=== PATIENT | male | born 1960 | race Caucasian/White ===

== ENCOUNTER 2019-07-28 10:38 | Emergency (ER) | payer OTHER, MEDICAID ==
[~2019-07-28] VITALS: Ht 177.8 cm; Wt 81.6 kg
[2019-07-28 10:38] VITALS: BP_SYST 119
[2019-07-28 11:50] LABS: BILIRUBIN,URINE NEGATIVE (NEGATIVE); BLOOD, URINE NEGATIVE (NEGATIVE); CLARITY/URINE CLEAR (CLEAR); COLOR,URINE YELLOW (YELLOW); GLUCOSE,URINE NEGATIVE (NEGATIVE); KETONES,URINE NEGATIVE (NEGATIVE); LEUKOCYTE ESTERASE ,URINE NEGATIVE (NEGATIVE); NITRITE, URINE NEGATIVE (NEGATIVE); PROTEIN URINE NEGATIVE (NEGATIVE); UROBILINOGEN,URINE 0.2 (0.2-1.0)
[2019-07-28 11:50] LABS: BASOPHILS % (AUTO) 0.6 % (0.0-2.0); EOSINOPHILS # (AUTO) 0.1 K/uL (0.0-0.4); EOSINOPHILS % (AUTO) 0.9 % (0.0-4.0); HEMATOCRIT 41.2 % (36-54); HEMOGLOBIN 13.2 g/dL (14.0-18.0); LYMPHOCYTES # (AUTO) 1.3 K/uL (1.0-5.5); LYMPHOCYTES % (AUTO) 20.4 % (20.5-51.5); MEAN CORPUSCULAR HEMOGLOBIN 29 pg (27-31); MEAN CORPUSCULAR HGB CONC 32 % (32-36); MEAN CORPUSCULAR VOLUME 89 fL (79.0-98.0); MONOCYTES # (AUTO) 0.6 K/uL (0.0-1.0); MONOCYTES % (AUTO) 8.8 % (1.7-9.3); NEUTROPHILS # (AUTO) 4.3 K/uL (1.8-7.7); NEUTROPHILS % (AUTO) 69.3 % (40.0-70.0); PLATELET COUNT (AUTO) 222 K/uL (130-430); RED BLOOD CELL COUNT(AUTO) 4.61 MIL/uL (4.2-6.2); RED CELL DISTRIBUTION WIDTH 13.8 % (9.0-15.0); WHITE BLOOD COUNT (AUTO) 6.3 K/uL (4.8-10.8)
[2019-07-28 12:03] LABS: ANION GAP 4 (5-15); CHLORIDE 103 mmol/L (98-107); CREATININE 0.92 mg/dL (0.55-1.30); GLUCOSE 101 mg/dL (70-99); POTASSIUM 4.8 mmol/L (3.5-5.1); SODIUM SERUM 136 mmol/L (136-145); UREA NITROGEN, BLOOD 16 mg/dL (8-21)
[2019-07-28 12:08] LABS: ALANINE AMINOTRANSFERASE 40 U/L (12-78); ALBUMIN 3.4 g/dL (3.4-4.8); ASPARTATE AMINOTRANSFERASE 26 U/L (10-37); CHOLESTEROL 177 mg/dL (<200); HDL CHOLESTEROL 58 mg/dL (>45); LDL CHOLESTEROL 98 mg/dL (<100); TOTAL BILIRUBIN 0.4 mg/dL (0.0-1.0); TRIGLYCERIDES 76 mg/dL (30-150)
[2019-07-28 12:15] LABS: BARBITURATE, URINE NEGATIVE (NEG <=200); BENZODIAZEPINE, URINE NEGATIVE (NEG <=150); CANNABINOID, URINE NEGATIVE (NEG <=50); COCAINE, URINE NEGATIVE (NEG <=150); METHAMPHETAMINES SCREEN,URINE NEGATIVE (NEG <=500); OPIATE, URINE NEGATIVE (NEG <=100); PHENCYCLIDINE SCREEN,URINE NEGATIVE (NEG <=25); UR TRICYCLIC ANTIDEPRESSANTS POSITIVE (NEG <=300); URINE AMPHETAMINE NEGATIVE (NEG <=500); URINE METHADONE NEGATIVE (NEG <=200); URINE OXYCODONE SCREEN NEGATIVE (NEG <=100); URINE PROPOXYPHENE SCREEN NEGATIVE (NEG <=300)
[2019-07-28 12:18] LABS: GFR AFRICAN AMERICAN 108 mL/min (>90)
[2019-07-28 12:21] LABS: ACETAMINOPHEN < 1 ug/mL (1-30); ALCOHOL, BLOOD < 3 mg/dL (<10)
[2019-07-28 12:42] VITALS: BP_SYST 114
== END 2019-07-28 12:42 ==
LOC: SED 10:38
DX: R25.1 Tremor, unspecified (principal); R53.1 Weakness; I10 Essential (primary) hypertension
CPT/HCPCS: 36415; 80053; 80061; 80307; 81003; 83036; 85025; 87081; 99285; G0480; G0481; G0482

== ENCOUNTER 2019-10-29 15:38 | Emergency (ER) | payer OTHER, MEDICAID ==
[~2019-10-29] VITALS: Ht 180.3 cm; Wt 113.4 kg
--- NOTE | 2019-10-29 15:40 | NUR ---
ER at bedside examining patient.
[2019-10-29 15:44] VITALS: BP_SYST 110
--- NOTE | 2019-10-29 15:44 | NUR ---
Patient to ER bed 04 to gown for evaluation. Side rails up. Report given to anthony Smith
--- NOTE | 2019-10-29 15:55 | NUR ---
RN ASSESSING PT. PT IS ALERT AND ORIENTED. PT STATED HE FELL A COUPLE OF TIMES TODAY. PT IS FROM A BOARD AND CARE. NO OBVIOUS INJURIES AND PT DENIES HITTING HIS HEAD.
[2019-10-29] MEDS ORDERED: NACL 0.9% 1,000 ML IV ONE (16:30)
[2019-10-29 16:44] LABS: BASOPHILS # (AUTO) 0.1 K/uL (0.0-0.2); BASOPHILS % (AUTO) 0.5 % (0.0-2.0); EOSINOPHILS # (AUTO) 0.1 K/uL (0.0-0.4); EOSINOPHILS % (AUTO) 0.9 % (0.0-4.0); HEMATOCRIT 41.4 % (36-54); HEMOGLOBIN 13.1 g/dL (14.0-18.0); LYMPHOCYTES # (AUTO) 1.7 K/uL (1.0-5.5); LYMPHOCYTES % (AUTO) 14.5 % (20.5-51.5); MEAN CORPUSCULAR HEMOGLOBIN 28 pg (27-31); MEAN CORPUSCULAR HGB CONC 32 % (32-36); MEAN CORPUSCULAR VOLUME 90 fL (79.0-98.0); MONOCYTES # (AUTO) 1.6 K/uL (0.0-1.0); MONOCYTES % (AUTO) 13.5 % (1.7-9.3); NEUTROPHILS # (AUTO) 8.4 K/uL (1.8-7.7); NEUTROPHILS % (AUTO) 70.6 % (40.0-70.0); RED BLOOD CELL COUNT(AUTO) 4.62 MIL/uL (4.2-6.2); RED CELL DISTRIBUTION WIDTH 14.2 % (9.0-15.0); WHITE BLOOD COUNT (AUTO) 11.9 K/uL (4.8-10.8)
[2019-10-29 16:54] LABS: ANION GAP 6 (5-15); CALCIUM 8.3 mg/dL (8.4-11.0); CHLORIDE 106 mmol/L (98-107); GLUCOSE 110 mg/dL (70-99); POTASSIUM 4.3 mmol/L (3.5-5.1); SODIUM SERUM 139 mmol/L (136-145); UREA NITROGEN, BLOOD 23 mg/dL (8-21)
[2019-10-29 16:55] LABS: GFR AFRICAN AMERICAN 98 mL/min (>90)
[2019-10-29 16:56] LABS: PLATELET COUNT (AUTO) 228 K/uL (130-430); PROTHROMBIN TIME 9.9 SECS (9.5-12.5)
[2019-10-29 16:59] LABS: ALANINE AMINOTRANSFERASE 26 U/L (12-78); ALBUMIN 3.1 g/dL (3.4-4.8); ASPARTATE AMINOTRANSFERASE 25 U/L (10-37); TOTAL BILIRUBIN 0.4 mg/dL (0.0-1.0)
[2019-10-29 17:02] LABS: ALCOHOL, BLOOD < 3 mg/dL (<10)
--- NOTE | 2019-10-29 17:05 | NUR ---
PT JUST BACK FROM CT.
--- NOTE | 2019-10-29 19:14 | NUR ---
RECEIEVED ADMIT ORDERS FROM DR. SO.
[2019-10-29 19:16] LABS: BILIRUBIN,URINE NEGATIVE (NEGATIVE); BLOOD, URINE NEGATIVE (NEGATIVE); CLARITY/URINE CLEAR (CLEAR); COLOR,URINE YELLOW (YELLOW); GLUCOSE,URINE TRACE (NEGATIVE); KETONES,URINE 1+ (NEGATIVE); LEUKOCYTE ESTERASE ,URINE NEGATIVE (NEGATIVE); NITRITE, URINE NEGATIVE (NEGATIVE); PROTEIN URINE NEGATIVE (NEGATIVE); UROBILINOGEN,URINE 0.2 (0.2-1.0)
[2019-10-29 19:28] LABS: BARBITURATE, URINE NEGATIVE (NEG <=200); BENZODIAZEPINE, URINE NEGATIVE (NEG <=150); CANNABINOID, URINE NEGATIVE (NEG <=50); COCAINE, URINE POSITIVE (NEG <=150); METHAMPHETAMINES SCREEN,URINE NEGATIVE (NEG <=500); OPIATE, URINE NEGATIVE (NEG <=100); PHENCYCLIDINE SCREEN,URINE POSITIVE (NEG <=25); UR TRICYCLIC ANTIDEPRESSANTS POSITIVE (NEG <=300); URINE AMPHETAMINE NEGATIVE (NEG <=500); URINE METHADONE NEGATIVE (NEG <=200); URINE OXYCODONE SCREEN NEGATIVE (NEG <=100); URINE PROPOXYPHENE SCREEN NEGATIVE (NEG <=300)
--- NOTE | 2019-10-29 19:32 | NUR ---
RECEIVED REPORT FROM DMITRY FISCHER FOR CONTINUATION OF CARE.
--- NOTE | 2019-10-29 19:41 | NUR ---
PATIENT TOOK OUT HIS OWN IV. BLEEDING HAS BEEN CONTROLLED AND CLEANED.
--- NOTE | 2019-10-29 19:59 | NUR ---
Medication reconciliation is unable to be obtained. Any prior medication reconciliation on file was reviewed and corrected.
[2019-10-29 20:05] LABS: CKMB RELATIVE INDEX 0.2 (0.0-2.9)
--- NOTE | 2019-10-29 20:05 | NUR ---
ER Dr. Garcia at bedside examining patient.
--- NOTE | 2019-10-29 20:05 | NUR ---
Upon reassesment by Dr. Garcia patient is medically cleared and able to return to board and care facility.
--- NOTE | 2019-10-29 20:17 | NUR ---
PATIENT WAS ABLE TO AMBULATE WITH STEADY GAIT. PATIENT DENIES PAIN, NAUSEA, DIZZINESS.
[2019-10-29 20:32] VITALS: BP_SYST 131
--- NOTE | 2019-10-29 20:32 | NUR ---
VIEWPOINT BLS ARRIVED TO TRANSFER PATIENT BACK TO [facility].
--- NOTE | 2019-10-29 20:32 | NUR ---
Patient discharged to [facility] ambulance to be take to [facility] in [place] and was given written and verbal discharge instructions and verbalizes understanding. ER MD discussed with patient the results and treatment provided. Patient in stable condition. ID arm band removed. IV catheter removed intact and dressing applied, no active bleeding. NO Rx given. Patient educated on pain management and to follow up with PMD. Pain Scale 0/10. Opportunity for questions provided and answered. Medication side effect fact sheet provided.
[2019-10-30] MEDS ORDERED: NORMAL SALINE 5 ML DISP.SYRIN IVF SCH (06:00)
== END 2019-10-29 20:32 | disposition home or self-care (01) ==
LOC: SED 15:38 → STU 19:05 → UNDOADMIN 19:05 → UNDODISIN 20:32 → STU 20:32
DX: R53.1 Weakness (principal); I10 Essential (primary) hypertension; W18.39XA Other fall on same level, initial encounter; Y93.89 Activity, other specified; Y92.89 Other specified places as the place of occurrence of the external cause; Y99.8 Other external cause status
CPT/HCPCS: 36415; 70450; 71045; 72100; 72170; 73560; 80053; 80307; 81003; 82550; 82553; 84484; 85025; 85610; 85730; 93005; 99285; G0482; J7030; G0378

== ENCOUNTER 2020-01-24 17:04 | Emergency (ER) | payer OTHER, MEDICAID, SELFPAY ==
[~2020-01-24] VITALS: Ht 172.7 cm; Wt 83.9 kg
--- NOTE | 2020-01-24 17:20 | NUR ---
Patient to ER H1 to gown for evaluation. Side rails up. Report given to Cody ANDRES.
[2020-01-24 17:27] VITALS: BP_SYST 104
--- NOTE | 2020-01-24 17:30 | NUR ---
DR MIRAMONTES IN TO ASSESS
--- NOTE | 2020-01-24 17:45 | NUR ---
TAMELA TO ASSUME CARE, PT CALM, ALERT, IN ROUTE TO [facility], NEEDING MED CLEARANCE
[2020-01-24 17:50] LABS: BASOPHILS # (AUTO) 0.1 K/uL (0.0-0.2); BASOPHILS % (AUTO) 0.5 % (0.0-2.0); EOSINOPHILS # (AUTO) 0.1 K/uL (0.0-0.4); EOSINOPHILS % (AUTO) 1.1 % (0.0-4.0); HEMATOCRIT 40.7 % (36-54); HEMOGLOBIN 13.5 g/dL (14.0-18.0); LYMPHOCYTES # (AUTO) 2.4 K/uL (1.0-5.5); LYMPHOCYTES % (AUTO) 22.8 % (20.5-51.5); MEAN CORPUSCULAR HEMOGLOBIN 29 pg (27-31); MEAN CORPUSCULAR HGB CONC 33 % (32-36); MEAN CORPUSCULAR VOLUME 88 fL (79.0-98.0); MONOCYTES % (AUTO) 9.7 % (1.7-9.3); NEUTROPHILS % (AUTO) 65.9 % (40.0-70.0); PLATELET COUNT (AUTO) 204 K/uL (130-430); RED BLOOD CELL COUNT(AUTO) 4.64 MIL/uL (4.2-6.2); RED CELL DISTRIBUTION WIDTH 14.6 % (9.0-15.0); WHITE BLOOD COUNT (AUTO) 10.6 K/uL (4.8-10.8)
--- NOTE | 2020-01-24 17:50 | NUR ---
CALM, ALERT, RESP UNLABORED, SKIN WARM AND DRY. COMMUNICATES CLEARLY IN FULL COMPLETE SENTENCES, DENIES CP/SOB. BIB EMT FOR MEDICAL CLEARANCE, EMT TO REMAIN UNTIL DISCHARGE LABS SENT
[2020-01-24 18:02] LABS: ANION GAP 7 (5-15); CALCIUM 8.9 mg/dL (8.4-11.0); CHLORIDE 110 mmol/L (98-107); CREATININE 1.16 mg/dL (0.55-1.30); GLUCOSE 94 mg/dL (70-99); POTASSIUM 3.7 mmol/L (3.5-5.1); SODIUM SERUM 144 mmol/L (136-145); UREA NITROGEN, BLOOD 17 mg/dL (8-21)
[2020-01-24 18:08] LABS: ALANINE AMINOTRANSFERASE 30 U/L (12-78); ALBUMIN 3.2 g/dL (3.4-4.8); ASPARTATE AMINOTRANSFERASE 30 U/L (10-37); TOTAL BILIRUBIN 0.2 mg/dL (0.0-1.0)
[2020-01-24 18:09] LABS: GFR AFRICAN AMERICAN 83 mL/min (>90)
[2020-01-24 18:10] LABS: ACETAMINOPHEN < 1 ug/mL (1-30); ALCOHOL, BLOOD < 3 mg/dL (<10)
[2020-01-24 18:33] LABS: BARBITURATE, URINE NEGATIVE (NEG <=200); BENZODIAZEPINE, URINE NEGATIVE (NEG <=150); CANNABINOID, URINE NEGATIVE (NEG <=50); COCAINE, URINE NEGATIVE (NEG <=150); METHAMPHETAMINES SCREEN,URINE NEGATIVE (NEG <=500); OPIATE, URINE NEGATIVE (NEG <=100); PHENCYCLIDINE SCREEN,URINE NEGATIVE (NEG <=25); UR TRICYCLIC ANTIDEPRESSANTS POSITIVE (NEG <=300); URINE AMPHETAMINE NEGATIVE (NEG <=500); URINE METHADONE NEGATIVE (NEG <=200); URINE OXYCODONE SCREEN NEGATIVE (NEG <=100); URINE PROPOXYPHENE SCREEN NEGATIVE (NEG <=300)
[2020-01-24 19:01] VITALS: BP_SYST 136
--- NOTE | 2020-01-24 19:01 | NUR ---
REPORT CALLED TO RN AT [facility]
--- NOTE | 2020-01-24 19:07 | NUR ---
Patient to be transferred to [facility]. Is being transferred due to higher level of care. Receiving facility has accepting physician and available space. ER physician has signed transfer form. Patient or responsible alliance party has agreed to transfer and signed form. Patient belongings inventoried and will be sent with patient. Copy of nursing notes, lab reports, EKG, Physicians Orders and X-rays to be sent with patient. Report called to RN at receiving facility. Receiving physician is ambulance service has been called for transfer.
== END 2020-01-24 19:01 ==
LOC: SED 17:04
DX: R41.0 Disorientation, unspecified (principal); I10 Essential (primary) hypertension; Z85.46 Personal history of malignant neoplasm of prostate
CPT/HCPCS: 36415; 80053; 80307; 85025; 87081; 87426; 99285; G0480; G0481; G0482